=== PATIENT | male | born 1945 | race Caucasian/White ===

== ENCOUNTER 2016-10-02 08:21 | Inpatient (IN) | payer OTHER ==
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
[~2016-10-02 08:21] MED LIST: cefOXitin SODIUM 2 GM in D5W 100 ML IV ONE
[2016-10-02] MEDS ORDERED: SKIN ADHESIVE (DERMABOND) 1 EACH TP ONE (08:46)
[2016-10-02] MEDS ORDERED: HEPARIN 1000 UNIT/1 ML MDV ONE (08:47)
[2016-10-02] MEDS ORDERED: BUPIVACAINE 0.5% 30 ML SDV ONE (08:47)
[2016-10-02] MEDS ORDERED: ceFAZolin 1 GM/5 ML SYR ONE (10:05)
[2016-10-02] MEDS ORDERED: MIDAZOLAM 2 MG/2 ML VIAL ONE (10:21)
[2016-10-02] MEDS ORDERED: PROPOFOL 200 MG/20 ML VIAL ONE (10:28)
[2016-10-02] MEDS ORDERED: fentaNYL 250 MCG/5 ML INJ ONE (10:28)
[2016-10-02] MEDS ORDERED: DEXAMETHASONE 4 MG/ML VIAL ONE (10:29)
[2016-10-02] MEDS ORDERED: ONDANSETRON 4 MG/2 ML VIAL ONE (10:30)
[2016-10-02] MEDS ORDERED: PHENYLEPHRINE HCL 100 MCG/ML SYR ONE (10:45)
[2016-10-02] MEDS ORDERED: ROCURONIUM 50 MG/5 ML VIAL ONE ×2 (11:33)
[2016-10-02] MEDS ORDERED: HYDROmorphONE/DILAUDID 2 MG/ML SYR ONE (12:57)
[2016-10-02] MEDS ORDERED: SUGAMMADEX SODIUM 200 MG/2 ML VIAL IVP ONE (13:37)
[2016-10-02] MEDS ORDERED: ONDANSETRON 4 MG/2 ML VIAL IVP PRN (14:56)
[2016-10-02] MEDS ORDERED: HYDROmorphONE/DILAUDID 1 MG/ML SYR IVP PRN (14:56)
--- NOTE | 2016-10-02 15:05 | POSTOPPROG ---
Post Op Note Date of Operation: 10/02/16 Surgeon: Dick Degroot Environmental Sampler: Jazmine Arango Anesthesiologist: Valentino Munguia Anesthesia: GET(General Endotracheal) Pre-op Diagnosis: large paraesophageal hernia, umbilical hernia Post-op Diagnosis: same Procedure: laparoscopic repair of large ph hernia c Lisandro fun; open umb hernia repair Findings: thick hernia sac c esophagus high in thoracic cavity Inf/Abcess present in the surg proc area at time of surgery?: No EBL: 50-100 Complications: none
--- NOTE | 2016-10-02 15:52 | GOP ---
[f rep st] OPERATIVE REPORT DATE OF OPERATION: 10/02/2016 SURGEON: Dick Degroot MD STATISTICS PROFESSOR: CAITLYN Watters ANESTHESIOLOGIST: Dr. Munguia PREOPERATIVE DIAGNOSIS: Symptomatic paraesophageal hernia. POSTOPERATIVE DIAGNOSIS: Symptomatic paraesophageal hernia, plus umbilical hernia. PROCEDURE PERFORMED: 1. Laparoscopic hiatal hernia repair with Lisandro fundoplication. 2. Open umbilical hernia repair. FINDINGS: 1. Patient was found to have a large, chronically stuck paraesophageal hernia containing at least half of the stomach and an extraordinarily thick large hernia sac. 2. A 2 cm umbilical hernia defect. DESCRIPTION OF PROCEDURE: Patient taken to the operating room, where he received a satisfactory general endotracheal anesthesia by Dr. Munguia. He was placed in supine position in a split leg position, and prepped and draped in the usual sterile fashion. Curvilinear incision was made above the umbilicus. Dissection was carried down through the subcutaneous tissue. The umbilical hernia sac was dissected free from surrounding tissue and from the back of the umbilical skin. Veress needle was then placed through the umbilical hernial sac. Pneumoperitoneum was established and a trocar was introduced. Good visualization was obtained. Four other trocars were placed in the upper abdomen under direct vision. The hiatus was well visualized. The left lateral segment of the liver was retracted away with a liver retractor and a tedious dissection then ensued, freeing up the stomach from the chest and from defining the diaphragmatic nelson. Extremely thick hernia sac with a significant amount of bleeding from large vessels in the hernia sac. Dissection was done primarily with the Harmonic Scalpel freeing up the lower 3-4 inches of the esophagus and the stomach from the diaphragmatic nelson, as well as freeing it up from the chest wall so it could be reduced back down into the abdomen. Once that was accomplished, the diaphragm was approximated with interrupted 0 Ethibond sutures. This was done with a 52 bougie dilator in the esophagus and then the short gastrics were divided off the greater curvature to the stomach, and the Lisandro wrap was passed through a retroesophageal tunnel. The anterior portion of the stomach was sutured to the anterior portion of the esophagus, as well as to the fundal wrap with interrupted 0 Ethibond sutures. The wrap was also secured up to the diaphragmatic hiatus with an 0 Ethibond suture. After completion of the crural approximation, hemostasis was thoroughly obtained. Blood loss was approximately 100 cc. There were no complications. Trocars were removed under direct vision. Trocar sites were closed with 0 Vicryl for the fascia, 4-0 Monocryl subcuticular stitch for the skin. Attention was turned to the umbilical hernia, which was closed in a 2-layer manner with 0 Surgilon mattress sutures in a [id number] type closure. The defect had been freed up and its contents reduced prior to the closure. All wounds were infiltrated with 0.5% Marcaine. The umbilical incision was closed with 3-0 Vicryl for the subcu and a 4-0 Monocryl subcuticular stitch for the skin. He was taken to the recovery room in good condition. There were no complications. /[id number]/MODL MTDD
[2016-10-02] MEDS: NS 1,000 ML IV SCH (16:26)
[2016-10-02] MEDS: KETOROLAC 15 MG/1 ML SDV IVP SCH (18:15)
[2016-10-02] MEDS: METOCLOPRAMIDE 10 MG/2 ML VIAL IVP SCH (18:18)
[2016-10-02] MEDS: TRIAMCINOLONE 0.1% 15 GM CRTUBE TP SCH (22:35)
[2016-10-03] MEDS: KETOROLAC 15 MG/1 ML SDV IVP SCH ×5 (00:42→23:49)
[2016-10-03] MEDS: NS 1,000 ML IV SCH (00:42)
[2016-10-03] MEDS: METOCLOPRAMIDE 10 MG/2 ML VIAL IVP SCH ×5 (00:43→23:49)
[2016-10-03 05:19] LABS: HEMATOCRIT 48.6 % (40.0-51.0); HEMOGLOBIN 16.2 g/dL (13.7-17.5)
[2016-10-03 05:49] LABS: ANION GAP 11 mEq/L (8-16); CALCIUM 8.6 mg/dL (8.5-10.4); CARBON DIOXIDE 23 mEq/l (22-31); CHLORIDE 107 mEq/L (97-110); CREATININE 0.8 mg/dL (0.7-1.3); GLOMERULAR FILTRATION RATE > 60; GLUCOSE 112 mg/dL (70-100); POTASSIUM 4.7 mEq/L (3.5-5.2); SODIUM 141 mEq/L (134-144)
[2016-10-03] MEDS: ASPIRIN 81 MG CHEWABLE TAB PO SCH (09:17)
[2016-10-03] MEDS: ATORVASTATIN CALCIUM 40 MG TAB PO SCH (09:17)
[2016-10-03] MEDS: PANTOPRAZOLE SODIUM 40 MG TAB PO SCH (09:17)
[2016-10-03] MEDS: TRIAMCINOLONE 0.1% 15 GM CRTUBE TP SCH ×2 (09:29→21:44)
--- NOTE | 2016-10-03 10:02 | SOAPPROG ---
SOAP Progress Note Assessment/Plan: Assessment: 71yo male s/p magdalene fundoplication, open umbilical hernia repair POD 1 tolerating small amount of clears, has not ambulated yet. passing gas PE Awake alert, accompanied by chest CTA B/L abdomen clean dry lap incisions with dermabond, soft, umbilicus gauze dry. Plan: d/c likely if pain control improves, ambulates well needs another day too given complexity, size of hernias. Lives in [place] will attempt to switch to inpt, if unable to do so will welcome call from case mnt 10/03/16 09:57 Objective: Vital Signs Temp Pulse Resp BP Pulse Ox 37.1 C 81 18 143/93 H 96 10/03/16 08:00 10/03/16 08:00 10/03/16 08:00 10/03/16 08:00 10/03/16 08:00 Laboratory Results 10/03/16 04:35 10/03/16 04:35 10/02/16 10/03/16 10/04/16 05:59 05:59 05:59 Intake Total 2900 1709 Output Total 1370 250 Balance 1530 1459 ICD10 Worksheet Patient Problems: Problems Problem Status Diagnosed S/P Magdalene fundoplication (without gastrostomy tube) procedure Acute - ICD10 Problem Qualifiers (1) S/P Magdalene fundoplication (without gastrostomy tube) procedure
[2016-10-04] MEDS: METOCLOPRAMIDE 10 MG/2 ML VIAL IVP SCH ×2 (05:27→12:35)
[2016-10-04] MEDS: KETOROLAC 15 MG/1 ML SDV IVP SCH ×2 (05:27→12:35)
[2016-10-04 08:09] VITALS: RESP 16
[2016-10-04] MEDS: ATORVASTATIN CALCIUM 40 MG TAB PO SCH (08:45)
[2016-10-04] MEDS: PANTOPRAZOLE SODIUM 40 MG TAB PO SCH (08:45)
[2016-10-04] MEDS: ASPIRIN 81 MG CHEWABLE TAB PO SCH (08:45)
[2016-10-04] MEDS: TRIAMCINOLONE 0.1% 15 GM CRTUBE TP SCH (08:48)
[2016-10-04] MEDS ORDERED: ENOXAPARIN 40 MG/0.4 ML SYR SC SCH (09:00)
--- NOTE | 2016-10-04 11:31 | SOAPPROG ---
SOAP Progress Note Assessment/Plan: Assessment: 71yo male s/p magdalene fundoplication, open umbilical hernia repair POD 1 tolerating small amount of clears, has not ambulated yet. passing gas PE Awake alert, accompanied by chest CTA B/L abdomen clean dry lap incisions with dermabond, soft, umbilicus gauze dry. Plan: d/c likely if pain control improves, ambulates well needs another day too given complexity, size of hernias. Lives in [place] will attempt to switch to inpt, if unable to do so will welcome call from case mnt 10/03/16 09:57 10/04/16 11:30 tolerating soft diet, ambulating, pain well controlled on toradol PE in chair, comfortable abdomen well healing lap incisions, umbilical incisions Plan d/c, will need O2 given low O2, less than 86% Objective: Vital Signs Temp Pulse Resp BP Pulse Ox 36.6 C 80 16 130/90 H 85 L 10/04/16 08:00 10/04/16 08:00 10/04/16 08:00 10/04/16 08:00 10/04/16 10:21 Laboratory Results 10/03/16 04:35 10/03/16 04:35 10/03/16 10/04/16 10/05/16 05:59 05:59 05:59 Intake Total 2900 1909 Output Total 1370 250 Balance 1530 1659 ICD10 Worksheet Patient Problems: Problems Problem Status Diagnosed S/P Magdalene fundoplication (without gastrostomy tube) procedure Acute - ICD10 Problem Qualifiers (1) S/P Magdalene fundoplication (without gastrostomy tube) procedure
[2016-10-04 11:35] VITALS: BP 152/96; PULSE 79; TEMP 98.2; O2SAT 94
--- NOTE | 2016-10-16 07:16 | GDS ---
[f rep st] DISCHARGE SUMMARY REASON FOR ADMISSION: Surgery for symptomatic large esophageal hernia. OTHER PERTINENT DIAGNOSES: History of coronary artery bypass graft, esophageal erosions. HOSPITAL COURSE: The patient is a very pleasant 71-year-old male, who came electively to [facility] to undergo surgery on 10/02/[address] Degroot, laparoscopic Lisandro fundoplication a nd umbilical hernia repair. The patient tolerated the procedure very well, and his hospital course was fairly unremarkable. He has been seen in our office since discharge and he is doing quite well. /[id number]/MODL
== END 2016-10-04 14:20 | disposition home or self-care (01) | DRG 328 ==
LOC: F3N 08:21 → F3E 15:27 → OBSVTOIN 10-03 09:57
PROVIDERS: ADMIT Surgery; ATTEND Surgery
PROC: 0DV44ZZ Restriction of Esophagogastric Junction, Percutaneous Endoscopic Approach (ICD-10-PCS; principal; 2016-10-02 09:45)
PROC: 0WQF0ZZ Repair Abdominal Wall, Open Approach (ICD-10-PCS; principal; 2016-10-02 09:45)
DX: K44.9 Diaphragmatic hernia without obstruction or gangrene (principal); K42.9 Umbilical hernia without obstruction or gangrene; I25.10 Atherosclerotic heart disease of native coronary artery without angina pectoris; Z96.659 Presence of unspecified artificial knee joint; Z98.1 Arthrodesis status
CPT/HCPCS: J0694; J1100; J1170; J1650; J1885; J2250; J2370; J2405; J2704; J2765; J3010

== ENCOUNTER → 2016-10-17 | Outpatient (CLI) | payer OTHER | LOC: FIMAGING 15:43 | PROVIDERS: ATTEND Surgery | DX: K44.9 Diaphragmatic hernia without obstruction or gangrene (principal); J90 Pleural effusion, not elsewhere classified; Z48.89 Encounter for other specified surgical aftercare ==

== ENCOUNTER → 2016-10-19 | Outpatient (CLI) | payer OTHER | LOC: FIMAGING 13:19 | PROVIDERS: ATTEND Surgery | DX: K44.9 Diaphragmatic hernia without obstruction or gangrene (principal) ==

== ENCOUNTER → 2017-05-30 | Outpatient (CLI) | payer OTHER, MEDICARE | LOC: FIMAGING 12:52 | PROVIDERS: ATTEND Surgery | DX: K44.9 Diaphragmatic hernia without obstruction or gangrene (principal) ==

== ENCOUNTER 2017-06-24 06:35 | Inpatient (IN) | payer OTHER, MEDICARE ==
[2017-06-24] MEDS ORDERED: LR 1,000 ML IV ONE (07:08)
[2017-06-24] MEDS ORDERED: LIDOCAINE 1% 2 ML INJ ID PRN (07:08)
--- NOTE | 2017-06-24 07:23 | PDHPUP ---
History & Physical Update H&P update statement: This history and physical update is based on an assessment of the patient which was completed after admission or registration (within 24 hours), but prior to the surgery/procedure. H&P update: H&P reviewed & patient examined, no change in patient's condition since H&P completed
[2017-06-24 07:36] LABS: % IMMATURE GRANULYOCYTES 0.2 % (0.0-1.1); ABSOLUTE IMMATURE GRANULOCYTES 0.01 10^3/uL (0.00-0.10); ADD DIFF? NO; ADD MORPH? NO; ADD SCAN? NO; ATYPICAL LYMPHOCYTE FLAG 10 (0-99); FRAGMENT RBC FLAG 0 (0-99); HEMATOCRIT 46.1 % (40.0-51.0); LEFT SHIFT FLG 0 (0-99); LIPEMIA HEMOLYSIS FLAG 90 (0-99); MEAN CELL HEMOGLOBIN 31.6 pg (27.9-34.1); MEAN CELL HEMOGLOBIN CONCENTR. 34.7 g/dL (32.4-36.7); MEAN CELL VOLUME 90.9 fL (81.5-99.8); MEAN PLATELET VOLUME 9.6 fL (8.7-11.7); PLATELET CLUMPS FLAG 0 (0-99); PLATELET COUNT 183 10^3/uL (150-400); RED BLOOD CELL COUNT 5.07 10^6/uL (4.40-6.38); RED CELL DISTRIBUTION WIDTH 13.8 % (11.5-15.2)
[2017-06-24] MEDS ORDERED: BUPIVACAINE 0.5% 30 ML SDV ONE (07:45)
[2017-06-24] MEDS ORDERED: HEPARIN 1000 UNIT/1 ML MDV ONE (07:45)
[2017-06-24] MEDS ORDERED: ceFAZolin 1 GM/5 ML SYR ONE (07:46)
[2017-06-24 07:51] LABS: ALANINE AMINOTRANSFERASE 29 IU/L (21-72); ALBUMIN 3.8 g/dL (3.5-5.0); ALKALINE PHOSPHATASE 83 IU/L (38-126); ANION GAP 11 mEq/L (8-16); ASPARTATE AMINOTRANSFERASE 34 IU/L (17-59); BILIRUBIN,TOTAL 0.7 mg/dL (0.1-1.4); CALCIUM 9.1 mg/dL (8.5-10.4); CARBON DIOXIDE 25 mEq/l (22-31); CHLORIDE 107 mEq/L (97-110); CREATININE 0.8 mg/dL (0.7-1.3); GLOMERULAR FILTRATION RATE > 60; GLUCOSE 94 mg/dL (70-100); POTASSIUM 4.5 mEq/L (3.5-5.2); SODIUM 143 mEq/L (134-144); TOTAL PROTEIN 6.3 g/dL (6.3-8.2)
--- NOTE | 2017-06-24 08:21 | PDANEPAE ---
ANE History of Present Illness Esophogeal reflux with hx of bleeding for endoscopic magdalene ANE Past Medical History - Cardiovascular History Hx Hypertension: No Hx Arrhythmias: No Hx Chest Pain: No Hx CHF / Valvular Disease: No Hx Palpitations: No Cardiovascular History Comment: high chol. cabg x3v at [facility] done in 2015. 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 [place] - Pulmonary History Hx COPD: No Hx Asthma/Reactive Airway Disease: No Hx Recent Upper Respiratory Infection: Yes Hx Oxygen in Use at Home: Yes O2 in Use at Home (L/minute): 2L Hx Sleep Apnea: Yes Sleep Apnea Screening Result - Last Documented: Positive Pulmonary History Comment: uses O2 @ night with CPAP- not portable, since 10/12 - Neurologic History Hx Cerebrovascular Accident: No Hx Seizures: No Hx Dementia: No - Endocrine History Hx Diabetes: No - Renal History Hx Renal Disorders: No - Liver History Hx Hepatic Disorders: No - Neurological & Psychiatric Hx Hx Neurological and Psychiatric Disorders: No - Cancer History Hx Cancer: Yes Cancer History Comment: prostate ca with radiation therapy 2016 - Congenital Disorder History Hx Congenital Disorders: No - GI History Hx Gastrointestinal Disorders: Yes Gastrointestinal History Comment: reflux. erosion of esophagus - Other Health History Other Health History: wears glasses - Chronic Pain History Chronic Pain: No - Surgical History Prior Surgeries: cabg x3v 02/2016 at [facility]. bilateral tka's. right wrist fusion surgery 2011. skin graft to legs 1970. hernia repair in mid ANE Review of Systems Review of Systems: - Exercise capacity METS (RN): 5 METS ANE Patient History - Allergies Allergies/Adverse Reactions: No Known Allergies Allergy (Verified 10/01/16 12:29) - Home Medications Home Medications: Aspirin [Aspirin 81mg (*)] 81 mg PO DAILY 10/01/16 [Last Taken 06/20/17] Atorvastatin Calcium [Lipitor 40 mg (*)] 40 mg PO DAILY 10/01/16 [Last Taken 1 Day Ago ~06/23/17] Pantoprazole Sodium [Protonix 40mg (*)] 40 mg PO DAILY 10/01/16 [Last Taken 1 Day Ago ~06/23/17] - NPO status NPO Since - Liquids (Date): 06/23/17 NPO Since - Liquids (Time): 18:00 NPO Since - Solids (Date): 06/23/17 NPO Since - Solids (Time): 06:00 - Smoking Hx Smoking Status: Former smoker - Family Anes Hx Family Hx Anesthesia Complications: none ANE Labs/Vital Signs - Labs Result Diagrams: 06/24/17 07:27 06/24/17 07:27 - Vital Signs Blood Pressure: 138/87 Heart Rate: 65 Respiratory Rate: 18 O2 Sat (%): 95 Height: 180.34 cm Weight: 81.647 kg ANE Physical Exam - Airway Neck exam: FROM Mallampati Score: Class 3 Mouth exam: normal dental/mouth exam, poor dentition - Pulmonary Pulmonary: no respiratory distress - Cardiovascular Cardiovascular: regular rate and rhythym - ASA Status ASA Status: III (had prior lap magdalene)
[2017-06-24] MEDS ORDERED: MIDAZOLAM 2 MG/2 ML VIAL IVP ONE (08:47)
[2017-06-24] MEDS ORDERED: MIDAZOLAM 2 MG/2 ML VIAL ONE ×2 (08:50→08:58)
[2017-06-24] MEDS ORDERED: PROPOFOL/EMULSION 500 MG/50 ML BOTTLE IV ONE ×2 (08:58→11:04)
[2017-06-24] MEDS ORDERED: fentaNYL 100 MCG/2 ML INJ ONE ×2 (08:58→12:07)
--- NOTE | 2017-06-24 09:46 | POSTANESTH ---
Post Anesthetic Evaluation Respiratory Status: Similar to Pre-op Cond. Level of Consciousness/Mental Status: Moderately Sleepy Pain Control: Adequate, Prn Tx Ordered Nausea/Vomiting Control: Adequate, Prn Tx Ordered Complications Possibly Related to Anesthesia: None Noted
[2017-06-24] MEDS ORDERED: cefOXitin SODIUM 1 GM in D5W 50 ML IV ONE (10:45)
[2017-06-24] MEDS ORDERED: METHYLENE BLUE 0.5% 50 MG/10 ML AMP ONE (11:32)
[2017-06-24] MEDS ORDERED: LIDOCAINE 2% JELLY 20 ML (UROJECT) ONE (11:39)
[2017-06-24] MEDS ORDERED: ONDANSETRON 4 MG/2 ML VIAL IVP PRN ×2 (12:14→13:04)
[2017-06-24] MEDS ORDERED: ONDANSETRON 4 MG/2 ML VIAL IVP ONE (12:14)
--- NOTE | 2017-06-24 12:14 | POSTANESTH ---
Post Anesthetic Evaluation Cardiovascular Status: Normal, Stable Respiratory Status: Similar to Pre-op Cond. Level of Consciousness/Mental Status: Moderately Sleepy Pain Control: Adequate, Prn Tx Ordered Nausea/Vomiting Control: Adequate, Prn Tx Ordered (Required open laparotomy) Complications Possibly Related to Anesthesia: None Noted
--- NOTE | 2017-06-24 13:02 | POSTOPPROG ---
Post Op Note Date of Operation: 06/24/17 Surgeon: Dick Degroot Fastener Sewing Machine Operator: Jazmine Arango Anesthesiologist: Gustabo Leavitt Anesthesia: GET(General Endotracheal) Pre-op Diagnosis: large recurrent hiatal hernia, GERD Post-op Diagnosis: same Procedure: laparoscopy, laparotomy c reduction of large recurrent hiatal hernia Findings: copious thick adhesions high at hiatus and high in the chest Inf/Abcess present in the surg proc area at time of surgery?: No EBL: 50-100 Complications: none
[2017-06-24] MEDS ORDERED: OXYCODONE/APAP 5/325 TAB PO PRN (13:04)
[2017-06-24] MEDS ORDERED: NALOXONE HCL 0.4 MG/ML INJ IVP PRN (13:06)
[2017-06-24] MEDS ORDERED: HYDROmorphONE/DILAUDID 6 MG/30 ML PCA IV PRN (13:06)
[2017-06-24] MEDS ORDERED: HYDROmorphONE/DILAUDID 1 MG/ML INJ ONE ×2 (13:07→14:02)
[2017-06-24] MEDS: HYDROmorphONE/DILAUDID 1 MG/ML INJ IVP PRN ×8 (13:08→15:08)
--- NOTE | 2017-06-24 15:06 | POSTANESTH ---
Post Anesthetic Evaluation Cardiovascular Status: Similar to Pre-Op Cond Respiratory Status: Similar to Pre-op Cond. Level of Consciousness/Mental Status: Mildly Sleepy, Arousable Pain Control: Adequate, Prn Tx Ordered Nausea/Vomiting Control: Adequate, Prn Tx Ordered (Pain controll acheived on diladid, to room on O2 6 liters with SaO2 93%) Complications Possibly Related to Anesthesia: None Noted
[2017-06-24] MEDS: D5W 1/2 NS W/ 20 KCl/L 1,000 ML IV SCH ×2 (15:19→23:27)
[2017-06-24] MEDS: METOCLOPRAMIDE 10 MG/2 ML VIAL IVP SCH ×2 (17:10→23:23)
[2017-06-24] MEDS: KETOROLAC 15 MG/1 ML SDV IVP SCH ×2 (17:11→23:23)
[2017-06-24] MEDS: cefOXitin SODIUM 1 GM in D5W 50 ML IV SCH ×2 (18:13→23:23)
--- NOTE | 2017-06-24 19:58 | SOAPPROG ---
SOAP Progress Note Assessment/Plan: Assessment: POSTOP OK/ NO AIR LEAK/ WOUND OK/ VS STABLE/ UO GOOD Plan:AMBULATE IN AM 06/24/17 19:56 Objective: Vital Signs Temp Pulse Resp BP Pulse Ox 36.7 C 93 20 122/77 H 93 06/24/17 19:05 06/24/17 19:05 06/24/17 19:05 06/24/17 19:05 06/24/17 19:05 Laboratory Results 06/24/17 07:27 06/24/17 07:27 06/23/17 06/24/17 06/25/17 05:59 05:59 05:59 Intake Total 2970 Output Total 1190 Balance 1780 ICD10 Worksheet Patient Problems: Problems Problem Status Onset S/P Lisandro fundoplication (without gastrostomy tube) procedure Acute
[2017-06-25 04:56] LABS: HEMATOCRIT 43.8 % (40.0-51.0); HEMOGLOBIN 14.5 g/dL (13.7-17.5)
[2017-06-25 05:13] LABS: ANION GAP 8 mEq/L (8-16); CALCIUM 8.1 mg/dL (8.5-10.4); CARBON DIOXIDE 27 mEq/l (22-31); CHLORIDE 104 mEq/L (97-110); CREATININE 0.8 mg/dL (0.7-1.3); GLOMERULAR FILTRATION RATE > 60; GLUCOSE 135 mg/dL (70-100); SODIUM 139 mEq/L (134-144)
[2017-06-25] MEDS: KETOROLAC 15 MG/1 ML SDV IVP SCH ×4 (06:03→23:36)
[2017-06-25] MEDS: METOCLOPRAMIDE 10 MG/2 ML VIAL IVP SCH ×4 (06:03→23:36)
[2017-06-25] MEDS: cefOXitin SODIUM 1 GM in D5W 50 ML IV SCH ×4 (06:03→23:36)
[2017-06-25] MEDS: D5W 1/2 NS W/ 20 KCl/L 1,000 ML IV SCH ×2 (08:21→16:01)
[2017-06-25] MEDS: PANTOPRAZOLE SODIUM 40 MG VIAL IVP SCH (08:45)
[2017-06-25] MEDS ORDERED: ATORVASTATIN CALCIUM 40 MG TAB PO SCH (09:00)
--- NOTE | 2017-06-25 10:35 | SOAPPROG ---
SOAP Progress Note Assessment/Plan: Assessment/Plan: 72 Y M s/p laparoscopy and laparotomy with repair of large recurrent hiatal hernia with adhesiolysis, B pneumothoraces, tube thoracostomy, esophagotomy repair, POD#1. Overall doing well. Continue routine post op care. Labs ok. AFVSS. CXR stable. Free air expected. Remove R CT soon. Continue to monitor B PTX's. Pain controlled. OOB today. Continue de la garza, plan for removal in am. Continue NPO, ice chips. Possibly clears in am. Dressing change tomorrow. Continue empiric IV abx for contamination/spillage GI contents. Continue reglan. Continue IS. S: Has yet to get OOB. Slept fine. Placement of cxr film was painful. No N/V. No flatus. O: alert, nad mmm, no jaundice good fremitus, no air leak, mild scattered rhonchi that clear with deep breaths rrr abd soft, rare BS. inc well dressed, no shadowing. urine light clear yellow 06/25/17 10:28 Objective: Vital Signs Temp Pulse Resp BP Pulse Ox 37.0 C 82 18 105/69 94 06/25/17 10:00 06/25/17 10:00 06/25/17 10:00 06/25/17 10:00 06/25/17 10:00 Laboratory Results 06/25/17 04:23 06/25/17 04:23 06/24/17 06/25/17 06/26/17 05:59 05:59 05:59 Intake Total 1200 Output Total 7370 Balance 2590 ICD10 Worksheet Patient Problems: Problems Problem Status Onset S/P Lisandro fundoplication (without gastrostomy tube) procedure Acute
--- NOTE | 2017-06-25 14:38 | ASMTCASEMG ---
Living Arrangements What is your living Answers: With Spouse arrangement? Who do you live with? Type Of Residence What kind of residence do Answers: House you live in? Discharge Plan Comments Coordination Status Comments Notes: Pt is 72 y/o man admitted w/ hiatal hernia. Pt had abdominal surgery yesterday. No therapies ordered at this time. Needs are TBD at this time. CM will follow. Date Signed: 06/25/2017 02:37 PM Electronically Signed By:MALLORY Morillo
[2017-06-25] MEDS ORDERED: ACETAMINOPHEN 325 MG TAB PO PRN (19:55)
[2017-06-25] MEDS: ATORVASTATIN CALCIUM 40 MG TAB PO SCH (20:09)
[2017-06-26] MEDS: D5W 1/2 NS W/ 20 KCl/L 1,000 ML IV SCH ×3 (01:51→18:12)
[2017-06-26] MEDS: METOCLOPRAMIDE 10 MG/2 ML VIAL IVP SCH ×4 (05:15→23:58)
[2017-06-26] MEDS: cefOXitin SODIUM 1 GM in D5W 50 ML IV SCH ×4 (05:15→23:57)
[2017-06-26] MEDS: KETOROLAC 15 MG/1 ML SDV IVP SCH ×4 (05:15→23:57)
[2017-06-26] MEDS: PANTOPRAZOLE SODIUM 40 MG VIAL IVP SCH (09:33)
--- NOTE | 2017-06-26 11:43 | SOAPPROG ---
SOAP Progress Note Assessment/Plan: Assessment/Plan: 72 Y M s/p laparoscopy and laparotomy with repair of large recurrent hiatal hernia with adhesiolysis, B pneumothoraces, tube thoracostomy, esophagotomy repair, POD#2. Overall doing well. Continue routine post op care. Removed CT. CXR this afternoon. Removed NGT. Sips of clears for comfort. Plan to remove de la garza this afternoon. Continue pain control, IV abx for contamination, and OOB/ambulate. S: Feels his belly grumbling--thinks passing as is close. No N/V. No SOB or chest tightness. O: alert, nad mmm, no jaundice good fremitus, no air leak, ctab, poor effort rrr abd soft, + BS. inc cdi 06/26/17 11:41 Objective: Vital Signs Temp Pulse Resp BP Pulse Ox 37.1 C 92 18 120/71 95 06/26/17 07:30 06/26/17 09:58 06/26/17 09:58 06/26/17 09:58 06/26/17 09:58 Laboratory Results 06/25/17 04:23 06/25/17 04:23 06/25/17 06/26/17 06/27/17 05:59 05:59 05:59 Intake Total 4530 3000 Output Total 1940 1890 Balance 2590 -510 ICD10 Worksheet Patient Problems: Problems Problem Status Onset S/P Lisandro fundoplication (without gastrostomy tube) procedure Acute
[2017-06-26] MEDS: ENOXAPARIN 40 MG/0.4 ML SYR SC SCH (18:11)
[2017-06-26] MEDS: ATORVASTATIN CALCIUM 40 MG TAB PO SCH (21:18)
[2017-06-27] MEDS: D5W 1/2 NS W/ 20 KCl/L 1,000 ML IV SCH (03:10)
[2017-06-27] MEDS: METOCLOPRAMIDE 10 MG/2 ML VIAL IVP SCH ×4 (06:04→23:38)
[2017-06-27] MEDS: KETOROLAC 15 MG/1 ML SDV IVP SCH ×4 (06:04→23:38)
[2017-06-27] MEDS: cefOXitin SODIUM 1 GM in D5W 50 ML IV SCH ×4 (06:04→23:38)
[2017-06-27] MEDS: ENOXAPARIN 40 MG/0.4 ML SYR SC SCH (09:07)
[2017-06-27] MEDS: PANTOPRAZOLE SODIUM 40 MG VIAL IVP SCH (09:07)
--- NOTE | 2017-06-27 11:59 | SOAPPROG ---
SOAP Progress Note Assessment/Plan: Assessment: 72-year-old male status post laparoscopy and laparotomy with repair of large recurrent hiatal hernia, lysis of adhesions, bilateral pneumothoraces comma chest tube placement (chest tube has been removed), esophagoscopy repair postop day 3. 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 Right chest tube site with a dry bandage, bandage not removed. Plan: Full clears Likely discharge tomorrow 06/27/17 11:56 Objective: Vital Signs Temp Pulse Resp BP Pulse Ox 36.9 C 76 18 133/80 H 89 L 06/27/17 11:41 06/27/17 11:41 06/27/17 11:41 06/27/17 11:41 06/27/17 11:41 Laboratory Results 06/25/17 04:23 06/25/17 04:23 06/26/17 06/27/17 06/28/17 05:59 05:59 05:59 Intake Total 3000 3529 341 Output Total 6187 4900 950 Balance -510 -1372 -609 ICD10 Worksheet Patient Problems: Problems Problem Status Onset S/P Lisandro fundoplication (without gastrostomy tube) procedure Acute
[2017-06-27] MEDS: ATORVASTATIN CALCIUM 40 MG TAB PO SCH (20:06)
[2017-06-28] MEDS: METOCLOPRAMIDE 10 MG/2 ML VIAL IVP SCH ×2 (05:46→12:39)
[2017-06-28] MEDS: KETOROLAC 15 MG/1 ML SDV IVP SCH ×2 (05:47→12:39)
[2017-06-28] MEDS: cefOXitin SODIUM 1 GM in D5W 50 ML IV SCH ×2 (05:47→12:39)
[2017-06-28 08:05] VITALS: BP 111/67; PULSE 62; RESP 18; TEMP 98.3
[2017-06-28 09:04] VITALS: O2SAT 83
[2017-06-28] MEDS: ENOXAPARIN 40 MG/0.4 ML SYR SC SCH (10:06)
[2017-06-28] MEDS: PANTOPRAZOLE SODIUM 40 MG VIAL IVP SCH (10:06)
--- NOTE | 2017-06-28 10:42 | PDHOMEO2F ---
Home Oxygen Face to Face Home Orders: I certify that a physician or a nurse practitioner or physician's volunteer services assistant has had a [id number] encounter with this patient on the date of this order due to the diagnosis listed, which relates to the primary reason the patient requires home oxygen. Alternative treatments have been tried, or considered, and deemed ineffective. It is anticipated that supplemental oxygen will result in improvement with treatment. Home oxygen qualifying diagnosis: CAD, coronary artery bypass history SpO2 on room air (%): 84 Frequency of home oxygen needed: continuous Home oxygen liters per minute: 2 Home oxygen delivery device: nasal cannula Concentrator: Yes E-tanks for mobility and back up: Yes If ordering portable O2, is the patient mobile in the home?: Yes I certify that, based on these findings, the home oxygen is medically necessary for this patient for the following length of time. Length of time home oxygen needed: 1 month
--- NOTE | 2017-06-28 10:49 | ASMTCMCOM ---
CM Note CM Note Notes: Plan remains the same, anticipate pt will dc home w/support of when medically stable. CM available for any changes. Date Signed: 06/28/2017 10:49 AM Electronically Signed By:Shira Alcocer RN
--- NOTE | 2017-06-29 10:24 | ASDISCHSUM ---
Discharge Information Plan Status:Home with No Needs Medically Cleared to Leave:06/28/2017 Discharge Date:06/28/2017 01:30 PM CM D/C Disposition:Home, Routine, Self-Care ADT D/C Disposition:Home, Routine, Self-Care Projected Discharge Date:06/28/2017 12:00 AM Transportation at D/C:Family Discharge Delay Reason: Follow-Up Date:06/28/2017 12:00 AM Discharge Slot:1 - 8:01 am - 12:00 noon Final Diagnosis:Hiatal hernia w/ lysis of adhesions s/p laparoscopy and laparotomy, bilat pneumothor aces, esophagoscopy repair Placement Information Patient Contact Information Contact Name:CEM Relationship: Address:[address] City:[place] Alternate Phone: [facility]/Zip Code:[place] [address] Email: Financial Information Financial Class: Primary Plan Desc:MEDICARE INPATIENT Primary Plan Number:[id number] Secondary Plan Desc:[employer]/MDR SUPPLEMENT Secondary Plan Number:[id number] Assessment Information [facility] Initial CM Assessment Living Arrangements What is your living Answers: With Spouse arrangement? Who do you live with? Type Of Residence What kind of residence do Answers: House you live in? Discharge Plan Comments Coordination Status Comments Notes: Pt is 72 y/o man admitted w/ hiatal hernia. Pt had abdominal surgery yesterday. No therapies ordered at this time. Needs are TBD at this time. CM will follow. Date Signed: 06/25/2017 02:37 PM Electronically Signed By:MALLORY Morillo [facility] CM Progress Note CM Note CM Note Notes: Plan remains the same, anticipate pt will dc home w/support of when medically stable. CM available for any changes. Date Signed: 06/28/2017 10:49 AM Electronically Signed By:Shira Alcocer RN Intervention Information Intervention Type:*Incorrect Registration Date of Service:06/24/2017 04:38 PM Patient Type:Observation Staff Member:JU Nolasco Courtney Hours: Discipline: Severity: Comment:
--- NOTE | 2017-07-14 15:42 | GOP ---
[f rep st] OPERATIVE REPORT DATE OF OPERATION: 06/24/2017 SURGEON: Dick Degroot MD ELECTRICAL CONTINUITY TESTER: HARVEY White. ANESTHESIOLOGIST: Gustabo Leavitt MD. PREOPERATIVE DIAGNOSIS: Recurrent hiatal hernia and gastroesophageal reflux disease. POSTOPERATIVE DIAGNOSIS: Recurrent hiatal hernia and gastroesophageal reflux disease. PROCEDURE PERFORMED: Laparoscopy, laparotomy with reduction of a large recurrent hiatal hernia, and an anterior gastropexy. FINDINGS: The patient is found to have serous thick adhesions around his hiatal hernia in the lower chest. His fundoplication wrap was intact, but had herniated up into the chest. ESTIMATED BLOOD LOSS: Less than 100 cc. DESCRIPTION OF PROCEDURE: The patient was taken to the operating room where he received satisfactory general endotracheal anesthesia by Dr. Leavitt. He was placed in the supine position, in low stirrup s. Prepped and draped in the usual sterile fashion. Epigastric incision was made. A Veress needle was inserted. Pneumoperitoneum was established. Trocar was introduced. Laparoscope introduced. Go od visualization was obtained. Four other trocars were placed in the upper abdomen under direct visi on. The left lobe of the liver was freed up from adhesions and elevated up with a liver retractor. Tedious dissection then ensued with the Harmonic Scalpel, freeing up the stomach from the diaphragmat ic hiatus and into the chest. Dissection got to be rather difficult. At that point, it was converte d to an open midline incision and the dissection was completed with the esophagus freed up for severa l centimeters and brought back down into the abdomen. The diaphragmatic hiatus was closed with inter rupted #1 Ethibond [id number] sutures creating a snug hiatus. This was done over a [address]ator. The fundoplication wrap appeared to still be intact. It was buttressed up to the esophagus a nd to the diaphragmatic hiatus with interrupted 0 Ethibond sutures as well, and then an anterior ellis ropexy was performed to try to prevent recurrent herniation, securing the stomach wall up to the ante rior abdominal wall with interrupted 2-0 silk sutures. Hemostasis was assured. COMPLICATIONS: None. /[id number]/MODL
== END 2017-06-28 13:30 | disposition home or self-care (01) | DRG 328 ==
LOC: F3N 06:35 → F3E 14:58 → OBSVTOIN 16:25
PROVIDERS: ADMIT Surgery; ATTEND Surgery
DX: K44.9 Diaphragmatic hernia without obstruction or gangrene (principal); K21.9 Gastro-esophageal reflux disease without esophagitis; G47.30 Sleep apnea, unspecified; E78.00 Pure hypercholesterolemia, unspecified; Z95.1 Presence of aortocoronary bypass graft
CPT/HCPCS: J0694; J0697; J1170; J1650; J1885; J2250; J2704; J2765; J3010; Q9968

== ENCOUNTER → 2018-02-27 | Outpatient (CLI) | payer OTHER, MEDICARE | LOC: FIMAGING 08:20 | PROVIDERS: ATTEND Surgery | DX: K44.9 Diaphragmatic hernia without obstruction or gangrene (principal); Z98.890 Other specified postprocedural states ==